=== PATIENT | male | born 1950 | race Caucasian/White ===

== ENCOUNTER 2017-10-19 09:09 | Observation (INO) | payer OTHER ==
--- NOTE | 2017-10-19 06:49 | PDIAF ---
- Diagnosis Diagnosis: left knee djd Code Status: Full Code - Medication Management Discharge Medications: Medications to Continue on Transfer Acetaminophen [Tylenol ES 500 mg (*)] 1,000 mg PO HS PRN 09/16/17 [Last Taken Unknown] Cholecalciferol Vit D3 [Vitamin D3 (*)] 2,000 units PO DAILY 09/16/17 [Last Taken Unknown] Hydrochlorothiazide [HCTZ (*)] 25 mg PO DAILY 09/16/17 [Last Taken Unknown] Losartan Potassium [Cozaar 50 mg (*)] 100 mg PO DAILY 09/16/17 [Last Taken Unknown] Naproxen Sodium [Aleve 220 MG (*)] 220 mg PO HS PRN 09/16/17 [Last Taken Unknown ] Discharge Medications: Refer to the Discharge Home Medication list for PRN reason. - Orders Services needed: Physical Therapy Diet Recommendation: no restrictions on diet Diet Texture: Regular Texture Diet Additional Instructions: TOTAL JOINT ARTHROPLASTY DISCHARGE INSTRUCTIONS 1. Your surgeon follows the [facility] protocol for reducing your risk of DVT (blood clots) following surgery. Medication will be ordered to prevent blood clots. A sudden increase in calf pain and/or swelling could indicate a blood clot in your leg. If this occurs, please call your surgeon or his/her commercial loan assistant. An ultrasound of the leg may be necessary to diagnose a blood clot. If you have conditions that make you a higher risk for blood clots, your surgeon may use more aggressive ways to prevent them. Notify your surgeon if you think you are a high risk for blood clots. 2. Wear your white surgical stockings (GURDEEP hose) for 2 weeks. This decreases your swelling and may help prevent blood clots. It is ok to remove GURDEEP hose at night time to give your legs a break. 3. Swelling and bruising in the surgical leg is common. If you feel that it is excessive, please notify your surgeon. 4. Elevate your surgical leg with the ankle above the hip several times every day. Please keep the leg straight when you elevate by putting pillows under your foot. Do not put pillows under your knee. This will make being able to fully straighten more difficult. This is uncomfortable, but try to do it as much as possible. 5. For total knee replacements use compressive wrap on your knee for 3-5 days after surgery, then you can discontinue it. 6. Use a walker or crutches for 1-2 weeks. Progress your weight-bearing as tolerated. You may start to use a cane when you feel stable and safe. 7. You will receive physical therapy instructions in the hospital. Continue those exercises at home. There are additional exercises in the total joint booklet you were given before surgery. Outpatient physical therapy will begin 7- 10 days after surgery. Please schedule this in advance. 8. Use ice on your knee at least 3-5 times every day for 30 minutes. This helps reduce pain and swelling. Also use it at night before falling asleep. 9. Leave your surgical dressing in place for 2 weeks. Your dressing is water resistant, but not waterproof. Cover it with Saran Wrap or Lgstq-o-Mrqu before showering. You may shower as soon as you feel safe entering a shower. If you notice bleeding from your incision 2 or 3 days after surgery, please notify your surgeon. 10. Due to narcotics, decreased activity and altered diet, most patients experience constipation after surgery. Use ihus-cia-dtllyqm stool softeners while you are on narcotics. 11. You may drive a car when you are comfortable bearing weight, have good muscular control of your leg and are off narcotics. This usually occurs 2-4 weeks after surgery, depending on which leg was operated on. 12. If there are questions not addressed here, please refer the [facility] book given for more information. If you still have questions, please contact your surgeon s office. 13. If you have a life-threatening emergency, please call 911 and go to the emergency room immediately. For non-life threatening emergencies, please call your physicians office for advice before going to the emergency room. - Follow Up Care Current Providers and Referrals: Fabián Vinson MD [Primary Care Provider] - Josue Bernal MD [Medical Doctor] -
--- NOTE | 2017-10-19 06:49 | PDHPUP ---
History & Physical Update H&P update statement: This history and physical update is based on an assessment of the patient which was completed after admission or registration (within 24 hours), but prior to the surgery/procedure. H&P update: no change in patient's condition since H&P completed
[~2017-10-19 09:09] MED LIST: ROPIVACAINE 0.2% 80 MG, EPINEPHrine 0.2 MG, KETOROLAC TROMETHAMINE 30 MG, morphINE 10 M... IU ONE; TRANEXAMIC ACID 1,000 MG in NS 100 ML IV ONE
[2017-10-19] MEDS ORDERED: ceFAZolin 2 GM/DEXTROSE 100 ML IV ONE (11:28)
[2017-10-19] MEDS ORDERED: FAMOTIDINE 20 MG TAB PO ONE (11:28)
[2017-10-19] MEDS ORDERED: ACETAMINOPHEN 325 MG TAB PO ONE (11:28)
[2017-10-19] MEDS ORDERED: LR 1,000 ML IV ONE (11:29)
[2017-10-19] MEDS ORDERED: CALCIUM CHLORIDE 1 GM/10 ML INJ ONE (12:05)
[2017-10-19] MEDS ORDERED: THROMBIN (BOVINE) 5,000 UNIT VIAL TP ONE (12:05)
[2017-10-19] MEDS ORDERED: PROPOFOL 200 MG/20 ML VIAL ONE ×5 (13:20→16:15)
--- NOTE | 2017-10-19 14:13 | PDANEPAE ---
ANE History of Present Illness L TKA ANE Past Medical History - Cardiovascular History Hx Hypertension: Yes Hx Arrhythmias: No Hx Chest Pain: No Hx Coronary Artery / Peripheral Vascular Disease: No Hx CHF / Valvular Disease: No Hx Palpitations: No Cardiovascular History Comment: HPL - Pulmonary History Hx COPD: No Hx Asthma/Reactive Airway Disease: No Hx Recent Upper Respiratory Infection: No Hx Oxygen in Use at Home: No Hx Sleep Apnea: No Sleep Apnea Screening Result - Last Documented: Positive Pulmonary History Comment: sinus wash for seasonal allergies - Neurologic History Hx Cerebrovascular Accident: No Hx Seizures: No Hx Dementia: No - Endocrine History Hx Diabetes: No Obesity: mild - Renal History Hx Renal Disorders: No - Liver History Hx Hepatic Disorders: No - Neurological & Psychiatric Hx Hx Neurological and Psychiatric Disorders: No - Cancer History Hx Cancer: No - Congenital Disorder History Hx Congenital Disorders: No - GI History GERD: no Hx Gastrointestinal Disorders: No - Other Health History Other Health History: nasal wash. bilat hearing aids - Chronic Pain History Chronic Pain: Yes (RIGHT KNEE) - Surgical History Prior Surgeries: 2013 hernia repair with mesh. colonoscopy. meniscus repair,. bunionectomy ANE Review of Systems Review of Systems: - Exercise capacity METS (RN): 5 METS ANE Patient History - Allergies Allergies/Adverse Reactions: No Known Allergies Allergy (Unverified 09/16/17 10:38) - Home Medications Home Medications: Acetaminophen [Tylenol ES 500 mg (*)] 1,000 mg PO HS PRN 09/16/17 [Last Taken ] Cholecalciferol Vit D3 [Vitamin D3 (*)] 2,000 units PO DAILY 09/16/17 [Last Taken 1 Week Ago ~10/12/17] Hydrochlorothiazide [HCTZ (*)] 25 mg PO DAILY 09/16/17 [Last Taken 10/19/17] Losartan Potassium [Cozaar 50 mg (*)] 100 mg PO DAILY 09/16/17 [Last Taken 10/19] Naproxen Sodium [Aleve 220 MG (*)] 220 mg PO HS PRN 09/16/17 [Last Taken 1 Week Ago ~10/12/17] - NPO status NPO Since - Liquids (Date): 10/19/17 NPO Since - Liquids (Time): 08:30 NPO Since - Solids (Date): 10/18/17 NPO Since - Solids (Time): 19:30 - Anes Hx Anes Hx: no prior problems - Smoking Hx Smoking Status: Former smoker (stopped in ) Marijuana use: No - Alcohol Use Alcohol Use: Other (1 beer/day) - Family Anes Hx Family Anes Hx: none Family Hx Anesthesia Complications: none ANE Labs/Vital Signs - Vital Signs Blood Pressure: 158/99 Heart Rate: 77 Respiratory Rate: 16 O2 Sat (%): 93 Height: 180.34 cm Weight: 97.522 kg ANE Physical Exam - Airway Neck exam: decreased ROM Mallampati Score: Class 3 Mouth exam: normal dental/mouth exam (Upper and Lower caps), small mouth opening - Pulmonary Pulmonary: clear to auscultation - Cardiovascular Cardiovascular: regular rate and rhythym - ASA Status ASA Status: II ANE Anesthesia Plan Anesthesia Plan: GA with mask, spinal Regional Anesthesia: adductor canal FNB Total IV Anesthesia: Yes
[2017-10-19] MEDS ORDERED: ceFAZolin 1 GM/5 ML SYR ONE (14:22)
[2017-10-19] MEDS ORDERED: fentaNYL 100 MCG/2 ML INJ ONE ×2 (14:26→17:23)
[2017-10-19] MEDS ORDERED: MIDAZOLAM 2 MG/2 ML VIAL ONE (15:00)
[2017-10-19] MEDS ORDERED: BUPIVACAINE/DEXTROSE 7.5MG/ML 2 ML SPINAL AMP SP ONE (15:05)
[2017-10-19] MEDS ORDERED: BUPIVACAINE 0.75% 10 ML SDV ONE (15:05)
[2017-10-19] MEDS ORDERED: PHENYLEPHRINE HCL 100 MCG/ML SYR ONE (16:02)
[2017-10-19] MEDS ORDERED: LACTULOSE 20 GM/30 ML UDCUP PO PRN (16:40)
[2017-10-19] MEDS ORDERED: TEMAZEPAM 15 MG CAP PO PRN (16:40)
[2017-10-19] MEDS ORDERED: CYCLOBENZAPRINE 10 MG TAB PO PRN (16:40)
[2017-10-19] MEDS ORDERED: ONDANSETRON 4 MG/2 ML VIAL IVP PRN (16:40)
[2017-10-19] MEDS ORDERED: PROMETHAZINE HCL 25 MG SUPPR PR PRN (16:40)
[2017-10-19] MEDS ORDERED: BISACODYL 10 MG SUPP PR PRN (16:40)
[2017-10-19] MEDS ORDERED: MAGNESIUM HYDROXIDE 30 ML UDCUP PO PRN (16:40)
[2017-10-19] MEDS ORDERED: diphenhydrAMINE 25 MG CAP PO PRN (16:40)
[2017-10-19] MEDS ORDERED: DIPHENOXYLATE/ATROPINE LOMOTIL 1 TAB PO PRN (16:40)
[2017-10-19] MEDS ORDERED: METOCLOPRAMIDE 10 MG/2 ML VIAL IVP PRN (16:40)
[2017-10-19] MEDS ORDERED: PROMETHAZINE HCL 25 MG/ML INJ IVP PRN (16:40)
[2017-10-19] MEDS ORDERED: POLYETHYLENE GLYCOL 3350 17 GM PKT PO PRN (16:40)
[2017-10-19] MEDS ORDERED: ONDANSETRON DISINTEGRATING 4 MG TAB PO PRN (16:40)
--- NOTE | 2017-10-19 16:40 | POSTOPPROG ---
Post Op Note Date of Operation: 10/19/17 Surgeon: Josue Bernal Heavy Threader: jackie Anesthesiologist: nancy Anesthesia: Spinal Pre-op Diagnosis: left knee djd Post-op Diagnosis: same Indication: same Procedure: left tka Inf/Abcess present in the surg proc area at time of surgery?: No Depth: Deep Incisional (Fascial) EBL: 50-100 Drains: Hemovac
[2017-10-19] MEDS ORDERED: clonIDINE 1 MG/10 ML VIAL EP ONE (16:42)
[2017-10-19] MEDS ORDERED: ROPIVACAINE HCL 150 MG/30 ML INJ ONE (16:42)
[2017-10-19] MEDS ORDERED: LR 1,000 ML IV SCH (17:00)
[2017-10-19] MEDS ORDERED: HYDROmorphONE/DILAUDID 1 MG/ML INJ IVP PRN (17:09)
[2017-10-19] MEDS ORDERED: NALOXONE HCL 0.4 MG/ML INJ IVP PRN (17:09)
--- NOTE | 2017-10-19 17:19 | POSTANESTH ---
Post Anesthetic Evaluation Cardiovascular Status: Similar to Pre-Op Cond Respiratory Status: Normal, Stable Level of Consciousness/Mental Status: Can Participate in Eval Pain Control: Adequate, Prn Tx Ordered Nausea/Vomiting Control: Adequate, Prn Tx Ordered Complications Possibly Related to Anesthesia: None Noted
[2017-10-19] MEDS: fentaNYL 100 MCG/2 ML INJ IVP PRN ×2 (17:26→17:43)
[2017-10-19] MEDS: ACETAMINOPHEN 325 MG TAB PO SCH ×2 (18:41→23:51)
[2017-10-19] MEDS: oxyCODONE IR 5 MG TAB PO PRN ×3 (18:42→23:56)
[2017-10-19] MEDS: ASPIRIN 325 MG TAB PO SCH (20:55)
[2017-10-19] MEDS: FAMOTIDINE 20 MG TAB PO SCH (20:56)
[2017-10-19] MEDS: SENNOSIDES/DOCUSATE SODIUM TAB PO SCH (20:57)
[2017-10-19] MEDS: ceFAZolin 2 GM/DEXTROSE 100 ML IV SCH (23:50)
[2017-10-19] MEDS: TRANEXAMIC ACID 650 MG TAB PO SCH (23:52)
[2017-10-20] MEDS: oxyCODONE IR 5 MG TAB PO PRN ×3 (02:54→10:29)
[2017-10-20] MEDS: ceFAZolin 2 GM/DEXTROSE 100 ML IV SCH (06:13)
[2017-10-20] MEDS: ACETAMINOPHEN 325 MG TAB PO SCH ×2 (06:13→11:59)
--- NOTE | 2017-10-20 06:58 | PDIAF ---
- Diagnosis Diagnosis: left knee djd Code Status: Full Code - Medication Management Discharge Medications: Medications to Continue on Transfer Acetaminophen [Tylenol ES 500 mg (*)] 1,000 mg PO HS PRN 09/16/17 [Last Taken ] Cholecalciferol Vit D3 [Vitamin D3 (*)] 2,000 units PO DAILY 09/16/17 [Last Taken 1 Week Ago ~10/12/17] Hydrochlorothiazide [HCTZ (*)] 25 mg PO DAILY 09/16/17 [Last Taken 10/19/17] Losartan Potassium [Cozaar 50 mg (*)] 100 mg PO DAILY 09/16/17 [Last Taken 10/19] oxyCODONE IR [Oxycodone Ir (*)] 5 - 10 mg PO Q3HRS PRN #50 tab 10/20/17 [Last Taken Unknown] Discharge Medications: Refer to the Discharge Home Medication list for PRN reason. - Orders Services needed: Physical Therapy Diet Recommendation: no restrictions on diet Diet Texture: Regular Texture Diet Additional Instructions: TOTAL JOINT ARTHROPLASTY DISCHARGE INSTRUCTIONS 1. Your surgeon follows the [facility] protocol for reducing your risk of DVT (blood clots) following surgery. Medication will be ordered to prevent blood clots. A sudden increase in calf pain and/or swelling could indicate a blood clot in your leg. If this occurs, please call your surgeon or his/her bus assistant. An ultrasound of the leg may be necessary to diagnose a blood clot. If you have conditions that make you a higher risk for blood clots, your surgeon may use more aggressive ways to prevent them. Notify your surgeon if you think you are a high risk for blood clots. 2. Wear your white surgical stockings (GURDEEP hose) for 2 weeks. This decreases your swelling and may help prevent blood clots. It is ok to remove GURDEEP hose at night time to give your legs a break. 3. Swelling and bruising in the surgical leg is common. If you feel that it is excessive, please notify your surgeon. 4. Elevate your surgical leg with the ankle above the hip several times every day. Please keep the leg straight when you elevate by putting pillows under your foot. Do not put pillows under your knee. This will make being able to fully straighten more difficult. This is uncomfortable, but try to do it as much as possible. 5. For total knee replacements use compressive wrap on your knee for 3-5 days after surgery, then you can discontinue it. 6. Use a walker or crutches for 1-2 weeks. Progress your weight-bearing as tolerated. You may start to use a cane when you feel stable and safe. 7. You will receive physical therapy instructions in the hospital. Continue those exercises at home. There are additional exercises in the total joint booklet you were given before surgery. Outpatient physical therapy will begin 7- 10 days after surgery. Please schedule this in advance. 8. Use ice on your knee at least 3-5 times every day for 30 minutes. This helps reduce pain and swelling. Also use it at night before falling asleep. 9. Leave your surgical dressing in place for 2 weeks. Your dressing is water resistant, but not waterproof. Cover it with Saran Wrap or Fabvo-z-Txal before showering. You may shower as soon as you feel safe entering a shower. If you notice bleeding from your incision 2 or 3 days after surgery, please notify your surgeon. 10. Due to narcotics, decreased activity and altered diet, most patients experience constipation after surgery. Use imie-hph-wsowymg stool softeners while you are on narcotics. 11. You may drive a car when you are comfortable bearing weight, have good muscular control of your leg and are off narcotics. This usually occurs 2-4 weeks after surgery, depending on which leg was operated on. 12. If there are questions not addressed here, please refer the [facility] book given for more information. If you still have questions, please contact your surgeon s office. 13. If you have a life-threatening emergency, please call 911 and go to the emergency room immediately. For non-life threatening emergencies, please call your physicians office for advice before going to the emergency room. - Follow Up Care Current Providers and Referrals: Fabián Vinson MD [Primary Care Provider] - Josue Bernal MD [Medical Doctor] -
--- NOTE | 2017-10-20 06:59 | SOAPPROG ---
SOAP Progress Note Assessment/Plan: Assessment: s/p tka Plan:progress with pt rom as ary dvt precautions reviewed seek attn for increasing complications pain control 10/20/17 06:57 Subjective: mod pain no cp or sob ary po Objective: Vital Signs Temp Pulse Resp BP Pulse Ox 36.7 C 73 16 126/83 H 98 10/20/17 04:12 10/20/17 04:12 10/20/17 04:12 10/20/17 04:12 10/20/17 04:12 Laboratory Results 10/20/17 04:32 10/19/17 10/20/17 10/21/17 05:59 05:59 05:59 Intake Total 620 200 Output Total 405 Balance 215 200 dressing intact intact pf, df, ehl toes warm and pink neg homans giovanni xrays stable alignment no fx or lucency ICD10 Worksheet Patient Problems: Problems Problem Status Onset Arthritis of knee Acute - ICD10 Problem Qualifiers (1) Arthritis of knee
[2017-10-20] MEDS: TRANEXAMIC ACID 650 MG TAB PO SCH (08:04)
[2017-10-20] MEDS ORDERED: LOSARTAN POTASSIUM 50 MG TAB PO SCH (09:00)
[2017-10-20] MEDS ORDERED: CHOLECALCIFEROL VIT D3 1,000 UNITS TAB PO SCH (09:00)
[2017-10-20] MEDS ORDERED: HYDROCHLOROTHIAZIDE 25 MG TAB PO SCH (09:00)
[2017-10-20] MEDS: SENNOSIDES/DOCUSATE SODIUM TAB PO SCH (10:24)
[2017-10-20] MEDS: FAMOTIDINE 20 MG TAB PO SCH (10:25)
[2017-10-20] MEDS: ASPIRIN 325 MG TAB PO SCH (10:25)
[2017-10-20 11:36] VITALS: BP 123/75
--- NOTE | 2017-10-20 12:09 | ASMTLACE ---
LACE Length of stay for Answers: 2 days current admission Acuity / Level of Answers: Yes Care: Did the patient have an inpatient admission? Comorbidities - select Answers: Opioid dependence all that apply / Chronic pain Other Notes: HTN # of Emergency department Answers: 0 visits in the last 6 months Score: 10 Date Signed: 10/20/2017 12:09 PM Electronically Signed By:DONALDO Acosta
--- NOTE | 2017-10-20 12:11 | ASMTCMCOM ---
CM Note CM Note Notes: Pt had OA of L knee. Pt medically stable for d/c with [facility]. Date Signed: 10/20/2017 12:11 PM Electronically Signed By:DONALDO Acosta
--- NOTE | 2017-10-21 09:43 | ASDISCHSUM ---
Discharge Information Plan Status:Home with Home Health Medically Cleared to Leave: Discharge Date:10/20/2017 01:07 PM CM D/C Disposition: ADT D/C Disposition:Home Health Service Projected Discharge Date:10/20/2017 11:00 AM Transportation at D/C: Discharge Delay Reason: Follow-Up Date:10/20/2017 11:00 AM Discharge Slot: Final Diagnosis: Placement Information Referral Type:*Home Health Care Services Referral ID:[id number] Provider Name:[facility] Address 1:[address] [place] [address] Address 2: City:[place] Selection Factors: State:[place] Patient Contact Information Contact Name:ULISESCHARLYLISSETTE Relationship: Address:[address] Work Phone: [facility]:[place] Alternate Phone: State/Zip Code:[place] [address] Email: Financial Information Financial Class:Medicare Primary Plan Desc:MEDICARE OUTPATIENT Primary Plan Number:[id number] Secondary Plan Desc:[facility] Secondary Plan Number:[id number] Assessment Information LACE LACE Length of stay for Answers: 2 days current admission Acuity / Level of Answers: Yes Care: Did the patient have an inpatient admission? Comorbidities - select Answers: Opioid dependence all that apply / Chronic pain Other Notes: HTN # of Emergency department Answers: 0 visits in the last 6 months Score: 10 Date Signed: 10/20/2017 12:09 PM Electronically Signed By:DONALDO Acosta [facility] Progress Note CM Note CM Note Notes: Pt had OA of L knee. Pt medically stable for d/c with [facility]. Date Signed: 10/20/2017 12:11 PM Electronically Signed By:DONALDO Acosta Intervention Information Intervention Type:*Incorrect Registration Date of Service:10/20/2017 12:27 PM Patient Type:Inpatient Staff Member:Xiomara Akins Hours: Discipline: Severity: Comment:
--- NOTE | 2017-10-24 07:14 | GDS ---
ADMISSION DIAGNOSIS: Left knee degenerative joint disease. DISCHARGE DIAGNOSIS: Left knee degenerative joint disease. PROCEDURE: Left total knee arthroplasty-MAKOplasty. HISTORY OF PRESENT ILLNESS: The patient is a 67-year-old gentleman with end-stage arthritis to his l eft knee. He presents for elective total knee replacement. He understands the risks, benefits, alte rnatives, consent was signed and placed in the patient's chart. HOSPITAL COURSE: The patient was admitted to the hospital floor after uncomplicated total knee arthr oplasty. He tolerated the procedure well. Overnight, he had no complications. At the time of disch arge, he is tolerating an oral diet. Pain was well controlled on oral medicines. He is voiding with out difficulty. Dressing is clean, dry, and intact. He has negative Mary's bilaterally. X-rays ar e stable in anatomic alignment. There is no fracture or lucency. DISCHARGE ACTIVITY: Weightbearing, range of motion as tolerated. Keep the dressing clean, dry, and intact. Seek attention for increasing redness, swelling, drainage. DISCHARGE MEDICATIONS: Oxycodone 5 mg 1-2 every 6 hours p.r.n. pain, aspirin 325 mg p.o. daily for 6 weeks. /[id number]/MODL
--- NOTE | 2017-10-24 07:14 | GOP ---
DATE OF OPERATION: 10/19/2017 SURGEON: Josue Bernal MD NEUROSURGEON: Josue Bernal MD LEAD TEACHER: Bernard Paul, SUPERVISOR WATERPROOFING, OPERATIONS VICE PRESIDENT, who was medical necessity for the entirety of the case. PREOPERATIVE DIAGNOSIS: Left knee degenerative joint disease. POSTOPERATIVE DIAGNOSIS: Left knee degenerative joint disease. PROCEDURE PERFORMED: Left total knee arthroplasty, MAKOplasty. FINDINGS: SPECIMENS: None. INDICATIONS: New is a 67-year-old gentleman with end-stage arthritis to his left knee. Clinica l and radiographic features are consistent with this. He has failed all attempts at conservative man agement. I have therefore recommended operative intervention and outlined the surgical procedure, ri sks, benefits, and alternatives. He wished to proceed. Written consent was signed and placed in pat jose's chart. DESCRIPTION OF PROCEDURE: The patient was identified in the preanesthesia area. The left knee clear ly demarcated as operative site with an indelible marker. He was given 2 g of Ancef intravenously en route to the operative suite. In the OR, a spinal anesthetic was placed, followed by sedation. Att ention was turned to the left knee and lower extremity which were sterilely prepped and draped in usu al fashion. Tourniquet was applied to the upper thigh. Limb was then sterilely prepped and draped i n usual fashion. Appropriate time-out procedure was carried out. A standard anterior midline incisi on was made. Thick subcutaneous flaps were elevated, followed by medial parapatellar arthrotomy. Th e subperiosteal elevation was carried out to the mid coronal plane. Retractors were placed, protecti ng medial and lateral collateral structures. The patient had advanced arthritis, and decision to pro ceed with total knee replacement was carried out. A separate percutaneous incision was made over the mid tibia. Two pins were then placed across the medial femur and the femoral reference array affixe d. The femoral check point and tibial check points were placed. Two pins were then placed in the dis radha tibia and tibial reference array affixed. All bony landmarks were entered into the computer in s tandard fashion. The knee was taken through flexion-extension balance using the MAKOplasty software and adjustment of the components. Resections were then made for a size 5 femur, size 6 tibia, and a trial reduction over a 6 x 11 mm polyethylene spacer revealed appropriate full extension and flexion without instability to varus-valgus stress through the flexion-extension arc. The trial components w ere withdrawn and the sequential fashion the tibia and femoral components were press-fit and confirme d to be fully seated. A 6 x 11 mm polyethylene spacer was then placed, confirmed to be fully seated. The knee was stable through the flexion-extension arc, as previous. The patella was then inverted, cut in a freehand cutting technique. Drill holes made for a size 38 mm metal-backed patella. This was press-fit into place. The knee was taken through flexion and extension. The kneecap tracked jesse trally without subluxation. Wound was copiously irrigated. The deep capsular tissue was injected wi th a joint cocktail of ropivacaine, morphine, Toradol, and epinephrine. Medial parapatellar arthroto my closed using #1 Ethibond suture. The wound was closed using 2-0 Monocryl. The knee was instilled with platelet-rich plasma and a ZipLine closure in the skin was placed, followed by a sterile dressi ng. The patient was awakened, extubated, taken to recovery room in good stable condition. TOTAL TOURNIQUET TIME: 45 minutes. COMPLICATIONS: None. IMPLANTS: The [place] Triathlon posterior stabilized femoral component size 5, size 6 tibial compone nt, a 6 x 11 mm polyethylene spacer, 38 mm asymmetric patella. DISPOSITION: To the recovery room, then the floor. He is weightbearing, range of motion as tolerate d. /[id number]/MODL
== END 2017-10-20 13:07 | disposition home health service (06) ==
LOC: F3N 10:47 → INTOOBSV 10:47 → F3N 18:15
PROVIDERS: ADMIT Orthopaedic Surgery; ATTEND Orthopaedic Surgery
PROC: 0SRD0JZ Replacement of Left Knee Joint with Synthetic Substitute, Open Approach (ICD-10-PCS; principal; 2017-10-19 13:15)
DX: M17.12 Unilateral primary osteoarthritis, left knee (principal)
CPT/HCPCS: 27447; 73560; 88311; 97110; 97116; 97161; 97165; 97535; C1776; G8978; G8979; G8980; G8987; G8988; G8989; J0171; J0690; J0735; J1885; J2250; J2270; J2370; J2704; J2795; J3010